=== PATIENT | female | born 1955 | race Caucasian/White ===

== ENCOUNTER 2022-09-22 05:50 | Day surgery (SDC) | payer OTHER ==
[~2022-09-22] VITALS: Ht 137.2 cm; Wt 49.1 kg
[~2022-09-22 05:50] MED LIST: ALBU8HFA IH; ALEN10TA27 PO; CHOL25TA4 PO; DICL-206 PO; ESCI10 PO; FLUT1DIS26 IH; IPRA3AMP24 NEB; LEVO75TA10 PO; MONT-40 PO; ROSU5TAB PO; SODIUM CHLORIDE 0.9% 1,000 ML IV ONE
[2022-09-22] MEDS ORDERED: LIDOCAINE 4% 50 ML SOLUTION TP ONE (05:51)
[2022-09-22] MEDS ORDERED: BENZOCAINE 20% 50 MCG/SPRAY 57 GM TP ONE (05:51)
[2022-09-22] MEDS ORDERED: LIDOCAINE 2% 11 ML JELLY TP ONE (05:51)
[2022-09-22 06:42] LABS: COVID AG,FIA SOURCE NASOPHARYNGEAL
[2022-09-22] MEDS ORDERED: MIDAZOLAM HCL 2 MG/2 ML VIAL ONE (07:51)
[2022-09-22] MEDS ORDERED: FentaNYL CITRATE PF 100 MCG/2 ML VIAL ONE (07:51)
[2022-09-22] MEDS ORDERED: MethylPREDNISolone SOD SUCC 125 MG/2 ML VIAL IVP ONE (09:15)
[2022-09-22] MEDS ORDERED: OXYGEN THERAPY IH SCH (20:00)
== END 2022-09-22 10:55 | disposition home or self-care (01) ==
LOC: SURGERY 05:50
PROVIDERS: ATTEND Internal Medicine Critical Care Medicine
DX: J38.4 Edema of larynx (principal); B37.0 Candidal stomatitis; J44.9 Chronic obstructive pulmonary disease, unspecified; Z79.899 Other long term (current) drug therapy; Z90.49 Acquired absence of other specified parts of digestive tract; Z98.890 Other specified postprocedural states; Z96.651 Presence of right artificial knee joint; E03.9 Hypothyroidism, unspecified; Z20.822 Contact with and (suspected) exposure to COVID-19
CPT/HCPCS: 31623; 88112; 87206; 87101; 87220; 87070; 93005; 31624; 71045; 87015; 87426; J3010; J2250; J2930; Q9967; C9803; Z7610